=== PATIENT | male | born 1980 | race African-American/Black ===

== ENCOUNTER 2018-09-24 17:34 | Emergency (ER) | payer BC ==
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
[2018-09-24] MEDS ORDERED: Ketorolac 60 MG/2 ML SDV IM ONE (18:47)
== END 2018-09-24 19:10 | disposition home or self-care (01) ==
LOC: MW.ED 17:34
DX: M62.838 Other muscle spasm (principal); F17.210 Nicotine dependence, cigarettes, uncomplicated; V89.2XXA Person injured in unspecified motor-vehicle accident, traffic, initial encounter
CPT/HCPCS: 72125; 96372; 99283; J1885

== ENCOUNTER 2020-10-29 14:14 | Emergency (ER) | payer SELFPAY ==
[2020-10-29] MEDS ORDERED: Diphtheria,Pertussis(Acell),Tetanus Vaccine 0.5 ML Syringe IM ONE (15:15)
[2020-10-29] MEDS ORDERED: Lidocaine 1% 10 ML MDV INJECT ONE (15:28)
--- NOTE | 2020-10-29 15:31 | EDM.PDOC ---
ED HPI GENERAL MEDICAL PROBLEM - General Chief Complaint: Laceration Stated Complaint: LFT HAND POSSIBLE STITCHES Time Seen by Provider: 10/29/20 15:14 - History of Present Illness INITIAL COMMENTS - FREE TEXT/NARRATIVE: History of present illness: [] This afternoon the patient was moving a refrigerator when he snagged his nondominant left hand on a sharp edge behind the refrigerator and pull it out causing a laceration at the volar DIP. The patient could not stop the bleeding. The patient has no other complaint today. He is not up-to-date on his tetanus shot. Review of systems: As per history of present illness and below otherwise all systems reviewed and negative. Past medical history: As per history of present illness and as reviewed below otherwise noncontributory. Surgical history: As per history of present illness and as reviewed below otherwise noncontributory. Social history: No reported history of drug or alcohol abuse. Family history: As per history of present illness and as reviewed below otherwise noncontributory. Physical exam: Constitutional - well developed, well-nourished and in no acute distress HEENT - normocephalic, no evidence of trauma - external nose and mouth normal - no mass in neck and no JVD - mucosae moist EYES - full EOM, PERRL, no icterus - no evidence of inflammation, injection, or drainage Respiratory - no respiratory distress, equal bilateral expansion Musculoskeletal no gross deformity of long bones or joints - no tenderness, swelling or edema Neurologic - Alert and oriented times four - CN II-XII grossly intact - motor sensory and coordination symmetrically normal Psychiatric - appropriate mood and affect with normal thought content Integument -the patient has a laceration across the full volar extent of the DIP of the index finger on the left hand. It is a full-thickness laceration. No rash or evidence of trauma - normal turgor Diagnostics: [] Therapeutics: [] Impression: [] Plan: [] Definitive disposition and diagnosis as appropriate pending reevaluation and review of above. Left Finger-Index Pain Score (Numeric/FACES): 2 - Related Data Allergies Allergy/AdvReac Type Severity Reaction Status Date / Time No Known Allergies Allergy Verified 10/29/20 15:14 Home Meds: Home Meds . [No Known Home Meds] 10/29/20 [History] Past Medical History - Past Health History Medical/Surgical History: Denies Medical/Surgical History HEENT History: Reports: None Cardiovascular History: Reports: None Respiratory History: Reports: None Gastrointestinal History: Reports: None Genitourinary History: Reports: None Musculoskeletal History: Reports: Other (See Below) Other Musculoskeletal History: previous neck and back injury Neurological History: Reports: None Psychiatric History: Reports: None Endocrine/Metabolic History: Reports: None Hematologic History: Reports: None Immunologic History: Reports: None Oncologic (Cancer) History: Reports: None Dermatologic History: Reports: None - Infectious Disease History Infectious Disease History: Reports: Chicken Pox - Past Surgical History Head Surgeries/Procedures: Reports: None Social & Family History - Family History Family Medical History: No Pertinent Family History - Tobacco Use Tobacco Use Status *Q: Current Every Day Tobacco User Years of Tobacco use: 20 Packs/Tins Daily: 1 - Caffeine Use Caffeine Use: Reports: Energy Drinks - Recreational Drug Use Recreational Drug Use: No ED ROS GENERAL - Review of Systems Review Of Systems: Comprehensive ROS is negative, except as noted in HPI. ED EXAM, SKIN/RASH Exam: See Below Text/Narrative:: My physical exam is in the HPI ED SKIN PROCEDURES - Laceration/Wound Repair Left Hand Local Anesthesia - Lidocaine (Xylocaine): 1% Plain Local Anesthetic Volume: 4cc Skin Prep: Chlorhexidine (Hibiciens), Saline Saline Irrigation (cc's): 250 Exploration/Debridement/Repair: Wound Explored, In a Bloodless Field Closed with: Sutures Lac/Wound length In cm: 1 Suture Size: 5-0 # of Sutures: 3 Suture Type: Nylon Drain Placement: No Sterile Dressing Applied: Nurse Tetanus Status Addressed: Yes Complications: No Course - Vital Signs Text/Narrative:: Neurovascular structures intact on reevaluation after splinting. Last Recorded V/S: Last Vital Signs Temp 36.1 C 10/29/20 15:11 Pulse 92 10/29/20 15:11 Resp 18 10/29/20 15:11 BP 125/84 10/29/20 15:11 Pulse Ox 97 10/29/20 15:11 - Orders/Labs/Meds Orders: Active Orders 24 hr Category Date Time Status Vaccines to be Administered [RC] PER UNIT ROUTINE Care 10/29/20 15:15 Active Meds: Medications Discontinued Medications Generic Name Dose Route Start Last Admin Trade Name Freq PRN Reason Stop Dose Admin Diphtheria/Tetanus/Acell Pertussis 0.5 ml 10/29/20 15:15 10/29/20 15:27 Diphtheria,Pertussis(Acell),Tetanus Vaccine 0.5 Ml Syringe IM 10/29/20 15:16 0.5 ml .ONCE ONE Administration Lidocaine HCl 10 ml 10/29/20 15:28 10/29/20 15:32 Lidocaine 1% 10 Ml Mdv INJECT 10/29/20 15:29 Not Given ONETIME ONE Lidocaine HCl Confirm 10/29/20 15:32 10/29/20 15:33 Lidocaine 1% 5 Ml Sdv Administered 10/29/20 15:33 Not Given Dose 5 ml .ROUTE .STK-MED ONE Lidocaine HCl 5 ml 10/29/20 15:33 10/29/20 15:33 Lidocaine 1% 5 Ml Sdv INJECT 10/29/20 15:34 5 ml ONETIME ONE Administration Departure - Departure Time of Disposition: 17:10 Disposition: Home, Self-Care 01 Condition: Good Clinical Impression: Laceration of finger - Discharge Information Instructions: Laceration Care, Adult, [id number] Referrals: PCP,None [Primary Care Provider] - Forms: ED Department Discharge Additional Instructions: Sutures should be removed in 7 to 10 days [facility] - [facility] [address] [place] [address] [place] [address] The following information is given to patients seen in the emergency department who are being discharged to home. This information is to outline your options for follow-up care. We provide all patients seen in our emergency department with a follow-up referral. The need for follow-up, as well as the timing and circumstances, are variable depending upon the specifics of your emergency department visit. If you don't have a primary care physician on staff, we will provide you with a referral. We always advise you to contact your personal physician following an emergency department visit to inform them of the circumstance of the visit and for follow-up with them and/or the need for any referrals to a consulting specialist. The emergency department will also refer you to a specialist when appropriate. This referral assures that you have the opportunity for follow-up care with a specialist. All of these measure are taken in an effort to provide you with optimal care, which includes your follow-up. Under all circumstances we always encourage you to contact your private physician who remains a resource for coordinating your care. When calling for follow-up care, please make the office aware that this follow-up is from your recent emergency room visit. If for any reason you are refused follow-up, please contact the [facility] Emergency Department at and asked to speak to the emergency department charge nurse. Sepsis Event Note (ED) - Evaluation Sepsis Screening Result: No Definite Risk - Focused Exam Vital Signs: Vital Signs Temp Pulse Resp BP Pulse Ox 10/29/20 15:11 36.1 C 92 18 125/84 97 - My Orders Last 24 Hours: My Active Orders 10/29/20 15:15 Vaccines to be Administered [RC] PER UNIT ROUTINE - Assessment/Plan Last 24 Hours: My Active Orders 10/29/20 15:15 Vaccines to be Administered [RC] PER UNIT ROUTINE
== END 2020-10-29 17:10 | disposition home or self-care (01) ==
LOC: MW.ED 14:14
DX: S61.211A Laceration without foreign body of left index finger without damage to nail, initial encounter (principal); Z23 Encounter for immunization; Z72.0 Tobacco use; W26.8XXA Contact with other sharp object(s), not elsewhere classified, initial encounter
CPT/HCPCS: 12001; 90471; 90715; 99282; 99282-25